=== PATIENT | female | born 1945 | race Hispanic/Latino ===

== ENCOUNTER 2019-12-02 19:03 | Emergency (ER) | payer MEDICARE ==
[~2019-12-02] VITALS: Ht 149.9 cm; Wt 50.3 kg
[2019-12-02] MEDS ORDERED: KETOROLAC TROMETHAMINE 30 MG/ML VIAL IV STA (19:08)
[2019-12-02] MEDS ORDERED: FENTANYL CITRATE/PF 100MCG/2 ML INJ IV PRN (19:15)
[2019-12-02] MEDS ORDERED: SODIUM CHLORIDE 0.9% 1000ML 1,000 ML IV SCH (19:15)
[2019-12-02 19:39] LABS: BASOPHILS # (AUTO) 0.1 (0.0-0.1); BASOPHILS % 0.8 % (0.0-1.0); EOSINOPHILS # (AUTO) 0.1 (0.0-0.4); EOSINOPHILS % 0.6 % (0.0-6.0); HEMATOCRIT 36.3 % (34.2-44.1); HEMOGLOBIN 12.6 g/dL (12.0-16.0); LYMPHOCYTES # (AUTO) 2.5 (1.0-3.2); MEAN CORPUSCULAR HEMOGLOBIN 31.6 pg (28-32); MEAN CORPUSCULAR HGB CONC 34.7 g/dL (31-35); MONOCYTES # (AUTO) 0.9 (0.2-0.8); MONOCYTES % 11.9 % (4.4-11.3); NEUTROPHILS # (AUTO) 4.2 (2.1-6.9); NEUTROPHILS % 54.3 % (38.7-80.0); PLATELET COUNT 241 x10e3/uL (140-360); RED BLOOD COUNT 3.99 x10e6/uL (3.6-5.1); RED CELL DISTRIBUTION WIDTH 12.9 % (11.7-14.4)
[2019-12-02 19:43] LABS: BILIRUBIN,URINE NEGATIVE (NEGATIVE); CLARITY,URINE CLEAR (CLEAR); COLOR,URINE YELLOW (YELLOW); KETONES,URINE NEGATIVE (NEGATIVE); LEUKOCYTE ESTERASE ,URINE TRACE (NEGATIVE); NITRITE,URINE NEGATIVE (NEGATIVE); PROTEIN,URINE DIPSTICK NEGATIVE (NEGATIVE); URINE UROBILINOGEN 0.2 mg/dL (0.2 - 1)
--- NOTE | 2019-12-02 19:48 | Emergency Department Note ---
History of Present Illnes History of Present Illness Chief Complaint: Genitourinary History of Present Illness This is a 74 year old female Chief Complaint Comment 74 Y/O FEMALE PT AAOX3 PRESENTS TO THE ER C/O LOWER BACK PAIN ONSET AROUND 0230 THIS AM; PT STATES SHE TOOK TRAMADOL AND MEDICATION HELPED FOR AWHILE AND PAIN CAME BACK; PT DENIES DYSURIA OR BURNING WITH URINATION. Patient states she thinks she has a kidney stone. She has never had a kidney stone before. Denies trauma. Able to walk into the ER. 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 Any updates have been documented here. Past Medical History Recent Fever: No Clinical Suspicion of Infectio: No New/Unexplained Change in Ment: No Review of Systems Review of Systems Constitutional: Reports no symptoms EENTM: Reports no symptoms Cardiovascular: Reports no symptoms Respiratory: Reports no symptoms Gastrointestinal: Reports no symptoms Genitourinary: Reports no symptoms Musculoskeletal: Reports as per HPI, Reports back pain Integumentary: Reports no symptoms Neurological: Reports no symptoms Psychological: Reports no symptoms Endocrine: Reports no symptoms Hematological/Lymphatic: Reports no symptoms Physical Exam Related Data Allergies: Coded Allergies: No Known Allergies (Unverified , 12/02/19) Triage Vital Signs Vital Signs Date Time Temp Pulse Resp B/P (MAP) Pulse Ox O2 Delivery O2 Flow Rate FiO2 12/02/19 19:05 99.6 86 20 160/64 100 Room Air Vital signs reviewed: Yes Physical Exam CONSTITUTIONAL Constitutional: Present well-developed, Present well-nourished HENT HENT: Present normocephalic, Present atraumatic, Present oropharynx clear/moist, Present nose normal HENT L/R: Present left ext ear normal, Present right ext ear normal EYES Eyes: Reports PERRL, Reports conjunctivae normal NECK Neck: Present ROM normal PULMONARY Pulmonary: Present effort normal, Present breath sounds normal CARDIOVASCULAR Cardiovascular: Present regular rhythm, Present heart sounds normal, Present capillary refill normal, Present normal rate GASTROINTESTINAL Abdominal: Present soft, Present nontender, Present bowel sounds normal GENITOURINARY Genitourinary: Present exam deferred SKIN Skin: Present warm, Present dry MUSCULOSKELETAL Musculoskeletal: Present ROM normal, Present tenderness (Diffuse, lower back) NEUROLOGICAL Neurological: Present alert, Present oriented x 3, Present no gross motor or sensory deficits, Present other (No saddle anesthesia, sensation, strength intact in BLE) PSYCHOLOGICAL Psychological: Present mood/affect normal, Present judgement normal Results Laboratory Result Diagram: 12/02/191914 Laboratory Laboratory Tests Test 12/02/19 19:15 White Blood Count 7.74 x10e3/uL (4.8-10.8) Red Blood Count 3.99 x10e6/uL (3.6-5.1) Hemoglobin 12.6 g/dL (12.0-16.0) Hematocrit 36.3 % (34.2-44.1) Mean Corpuscular Volume 91.0 fL (81-99) Mean Corpuscular Hemoglobin 31.6 pg (28-32) Mean Corpuscular Hemoglobin Concent 34.7 g/dL (31-35) Red Cell Distribution Width 12.9 % (11.7-14.4) Platelet Count 241 x10e3/uL (140-360) Neutrophils (%) (Auto) 54.3 % (38.7-80.0) Lymphocytes (%) (Auto) 32.0 % (18.0-39.1) Monocytes (%) (Auto) 11.9 % (4.4-11.3) Eosinophils (%) (Auto) 0.6 % (0.0-6.0) Basophils (%) (Auto) 0.8 % (0.0-1.0) Neutrophils # (Auto) 4.2 (2.1-6.9) Lymphocytes # (Auto) 2.5 (1.0-3.2) Monocytes # (Auto) 0.9 (0.2-0.8) Eosinophils # (Auto) 0.1 (0.0-0.4) Basophils # (Auto) 0.1 (0.0-0.1) Absolute Immature Granulocyte (auto 0.03 x10e3/uL (0-0.1) Lab results reviewed: Yes Imaging Imaging results reviewed: Yes Assessment & Plan Medical Decision Making MDM 74-year-old female presents to emergency department concerned she has a kidney stone. She states that she has some back pain starting at 2 AM this morning. She was tried tramadol at home but has not else. Examination shows some diffuse lower back tenderness to palpation. Labs and imaging show hypokalemia at 2.[address] is unremarkable. Patient wishes to leave before her magnesium and potassium are completed. Discussed that she needs to increase potassium-containing foods and follow-up with her primary doctor for this. Patient states current plan she is appropriate for discharge. Lidocaine patch Rx given. Reassessment Reassessment time: 22:27 Reassessment Well appearing, NAD Assessment & Plan Final Impression: (1) Back pain (2) Hypokalemia Depart Disposition: HOME, SELF-CARE Last Vital Signs Date Time Temp Pulse Resp B/P (MAP) Pulse Ox O2 Delivery O2 Flow Rate FiO2 12/02/19 19:05 99.6 86 20 160/64 100 Room Air Medications in the ED Ketorolac Tromethamine 15 mg ONCE STAT IV ; Start 12/02/19 at 19:08; Stop 12/02/19 at 19:09 Sodium Chloride 1,000 ml @ 0 mls/hr Q0M IV ; Start 12/02/19 at 19:15; Stop 12/02/19 at 20:14 Fentanyl Citrate 50 mcg Q2H PRN IV SEVERE PAIN (7-10); Start 12/02/19 at 19:15; Stop 12/09/19 at 19:14; Status UNV Lidocaine 1 ea DAILY TP ; Start 12/03/19 at 09:00; Stop 01/02/20 at 08:59; Status UNV SUMA DALTON MD Dec 02, 2019 19:48
[2019-12-02] MEDS ORDERED: KETOROLAC TROMETHAMINE 30 MG/ML VIAL ONE (19:50)
[2019-12-02] MEDS ORDERED: FENTANYL CITRATE/PF 100MCG/2 ML INJ ONE (19:51)
[2019-12-02] MEDS ORDERED: SODIUM CHLORIDE 0.9% 1000ML 1,000 ML ONE (19:51)
[2019-12-02 19:54] LABS: ALANINE AMINOTRANSFERASE 10 IU/L (0-55); ALBUMIN 4.1 g/dL (3.5-5.0); ALBUMIN/GLOBULIN RATIO 1.5 (0.8-2.0); ALKALINE PHOSPHATASE 90 IU/L (40-150); ANION GAP 14.8 mmol/L (8-16); BLOOD UREA NITROGEN 7 mg/dL (7-26); BUN/CREATININE RATIO 8 (6-25); CALCIUM 8.7 mg/dL (8.4-10.2); CARBON DIOXIDE 25 mmol/L (22-29); CHLORIDE 105 mmol/L (98-107); CREATININE, SERUM 0.83 mg/dL (0.57-1.11); EPITHELIAL CELLS,URINE RARE /LPF; EST GLOMERULAR FILTRATION RATE > 60 ML/MIN (60-); GLUCOSE 89 mg/dL (74-118); RBC,URINE 0-5 /HPF (0-5); SODIUM 142 mmol/L (136-145); WBC,URINE (MAN) 0-5 /HPF (0-5)
[2019-12-02 19:55] LABS: POTASSIUM 2.8 mmol/L (3.5-5.1)
[2019-12-02] MEDS ORDERED: POTASSIUM CHLORIDE 20 MEQ TAB CR PO STA (19:55)
--- NOTE | 2019-12-02 19:57 | NUR ---
ER MD AND PRIMARY NURSE NOTIFIED AND AWARE OF CRITICAL LAB VALUE, POTASSIUM 2.8.
[2019-12-02] MEDS ORDERED: POTASSIUM CHLORIDE 10MEQ/100ML 100 ML IV SCH (20:00)
[2019-12-02] MEDS ORDERED: MAGNESIUM SULF 1GRAM/DEXTROSE 100 ML IV ONE (20:00)
--- NOTE | 2019-12-02 20:36 | Diagnostic Imaging Report ---
History: Low back pain Comparison studies: None Technique: Axial images were obtained from inferior T12 through the sacrum. Coronal and sagittal images reconstructed from the axial data. Dose modulation, iterative reconstruction, and/or weight based adjustment of the mA/kV was utilized to reduce the radiation dose to as low as reasonably achievable. Intravenous contrast: None Findings: Number of non-rib bearing vertebral bodies: 4. L5 is sacralized Alignment: Normal lordosis. Left curvature centered at L4-L5 Soft tissues: Atherosclerotic calcifications in the aorta and iliac arteries Paraspinal muscles: Unremarkable. Vertebrae: Bones are mildly demineralized. No fractures, infection or neoplasm. Degenerative changes: L1-L2: No abnormalities. L2-L3: Minimally degenerated disc. Left asymmetric disc bulge. Mild left facet arthrosis Patent spinal canal and foramina. L3-L4: Mildly degenerated disc on the right is due to the curvature. Left asymmetric disc bulge. Mild right facet arthrosis. Patent spinal canal and foramina. L4-L5: Mild degenerative disc on the right at L4-5 due to the curvature. Moderate right foraminal stenosis due to a right asymmetric disc bulge and endplate osteophytes. Patent left foramen and spinal canal. L5-S1: The disc is hypoplastic. Patent bilateral canal and foramina. Sacroiliac joints: No degenerative changes. IMPRESSION: 1. No acute abnormalities. Bones are mildly demineralized but there are no fractures 2. Moderate right foraminal stenosis at L4-5 is related to degenerative changes in the disc on the right and due to a left curvature at this level. 3. Otherwise, no significant abnormalities. 4. L5 is sacralized bilaterally. Signed by: Dr. Tawanda Anderson M.D. on 12/02/2019 8:33 PM
--- NOTE | 2019-12-02 22:26 | Diagnostic Imaging Report ---
EXAM: CT Abdomen and Pelvis WITHOUT contrast INDICATION: ^stone protocol ^[id number] ^1999 COMPARISON: None. TECHNIQUE: Abdomen and pelvis were scanned utilizing a multidetector helical scanner from the lung base to the pubic symphysis without administration of IV contrast. Absence of intravenous contrast decreases sensitivity for detection of focal lesions and vascular pathology. Coronal and sagittal reformations were obtained. Routine protocol was performed. IV CONTRAST: None ORAL CONTRAST: Water COMPLICATIONS: None RADIATION DOSE: Total DLP: 200.22 mGy*cm Estimated effective dose: (DLP x 0.015 x size factor) mSv CTDIvol has been reviewed. It is below the limits set by the Radiation Protocol Committee (RPC). FINDINGS: LINES and TUBES: None. LOWER THORAX: Mild dependent atelectasis, right greater than left. Medial right base consolidation with some traction bronchiectasis, likely scarring. HEPATOBILIARY: Unenhanced liver is unremarkable. No biliary ductal dilation. GALLBLADDER: Not visualized. SPLEEN: No splenomegaly. PANCREAS: No focal masses or ductal dilatation. ADRENALS: No adrenal nodules KIDNEYS/URETERS: No hydronephrosis. Limited for evaluation of renal parenchyma without intravenous contrast. Right renal inferior pole cyst measuring approximately 9.5 x 7.5 cm. No stones. Several calcifications along the route of distal ureters and within pelvis are probably phleboliths without hydronephrosis. GI TRACT: No abnormal distention, wall thickening, or evidence of bowel obstruction. There are diverticula within the colon without evidence of diverticulitis. Appendix is not clearly identified. There is however no fat stranding or adenopathy in the right lower quadrant to suggest appendicitis. PELVIC ORGANS/BLADDER: Unremarkable. Hysterectomy. Several pelvic phleboliths as also mentioned above. LYMPH NODES: No lymphadenopathy. VESSELS: There is mild atherosclerotic disease in the aorta and major arterial branches. PERITONEUM / RETROPERITONEUM: No free air or fluid. BONES: Unremarkable. SOFT TISSUES: Partially seen bilateral breast implants. IMPRESSION: 1. No definite evidence of nephrolithiasis or obstructive urolithiasis. Several calcifications along the route of distal ureters and within pelvis are probably phleboliths without hydronephrosis. 2. Approximately 9.5 cm right renal inferior pole cyst. Full evaluation is limited without intravenous contrast. 3. Scattered colonic diverticula without evidence of diverticulitis. Signed by: Dr. Froy Patricia MD on 12/02/2019 10:22 PM
[2019-12-03] MEDS ORDERED: LIDOCAINE 4% PATCH TP SCH (09:00)
== END 2019-12-02 22:45 | disposition home or self-care (01) ==
LOC: ER 20:00
DX: M54.5 Low back pain (principal); N28.1 Cyst of kidney, acquired; E87.6 Hypokalemia
CPT/HCPCS: 36415; 72131; 74176; 80053; 81001; 83735; 85025; 87086; 99284; J1885; J3010; J3475; J3480; J7030